=== PATIENT | male | born 1940 | race Caucasian/White ===

== ENCOUNTER 2017-09-21 16:28 | Emergency (ER) | payer MEDICARE ==
[2017-09-21] MEDS ORDERED: Ketorolac Tromethamine 30 MG/ML VIAL ONE (17:06)
[2017-09-21 17:44] LABS: Bilirubin Negative (Negative); Blood, Urine Negative (Negative); Clarity Clear (Clear); Glucose, Urine (Dipstick) Negative (Negative); Leukocyte Negative (Negative); Nitrite Negative (Negative); Protein, Urine (Dipstick) Negative (Neg-Trace); Specific Gravity, Urine 1.015 (1.005-1.030); Urobilinogen 0.2 mg/dL (0.2-1.0); pH, Urine 5.5 (5.0-9.0)
[2017-09-21] MEDS ORDERED: Magnesium Sulfate 2 GM/100 ML BAG ONE (17:52)
[2017-09-21] MEDS ORDERED: Magnesium Citrate 300 ML BOT ONE (17:52)
== END 2017-09-21 18:25 | disposition home or self-care (01) ==
LOC: BURERS 16:28
DX: R33.9 Retention of urine, unspecified (principal); M54.5 Low back pain; E11.40 Type 2 diabetes mellitus with diabetic neuropathy, unspecified; Z79.899 Other long term (current) drug therapy; Z79.82 Long term (current) use of aspirin; Z79.84 Long term (current) use of oral hypoglycemic drugs
CPT/HCPCS: 51702; 81003; 96374; J1885; J3475

== ENCOUNTER 2017-09-24 01:59 | Emergency (ER) | payer MEDICARE ==
[2017-09-24] MEDS ORDERED: methylPREDNISolone Sod Succ/PF 125 MG/2 ML VIAL ONE (02:35)
[2017-09-24] MEDS ORDERED: Ketorolac Tromethamine 30 MG/ML VIAL ONE (02:35)
[2017-09-24] MEDS ORDERED: traMADol HCl 50 MG TAB ONE (02:49)
== END 2017-09-24 03:00 | disposition home or self-care (01) ==
LOC: BURERS 01:59
DX: M54.5 Low back pain (principal); E11.40 Type 2 diabetes mellitus with diabetic neuropathy, unspecified; Z79.82 Long term (current) use of aspirin; Z79.84 Long term (current) use of oral hypoglycemic drugs; Z79.899 Other long term (current) drug therapy
CPT/HCPCS: 96374; 96375; J1885; J2930

== ENCOUNTER 2022-02-15 21:53 | Emergency (ER) | payer MEDICARE ==
[2022-02-15] MEDS ORDERED: Sulfameth/Trimethoprim DS 800-160mg TAB ONE ×2 (22:21→22:22)
== END 2022-02-15 22:25 | disposition home or self-care (01) ==
LOC: BURERS 21:53
DX: L03.116 Cellulitis of left lower limb (principal)
CPT/HCPCS: 99283